=== PATIENT | female | born 1945 | race Caucasian/White ===

== ENCOUNTER 2018-12-24 20:45 | Inpatient (IN) ==
[2018-12-24] MEDS ORDERED: ATIVAN PO ONE (21:20)
[2018-12-24] MEDS ORDERED: ASPIRIN PO ONE (21:21)
[2018-12-24] MEDS ORDERED: NITROGLYCERIN SL PRN (21:21)
--- NOTE | 2018-12-24 21:47 | Diag Imaging Result Doc PS360 ---
EXAM: CHEST-2 VIEWS HISTORY: sob, cp TECHNIQUE: Chest two views COMPARISON: 05/10/2015 FINDINGS: Apical lordotic projection. The lungs are well expanded. The heart is mildly enlarged. The vessels are not distended. There are no infiltrates. No pleural effusions. IMPRESSION: Mild cardiomegaly. Electronically signed by Herminio Fairbanks 12/24/2018 9:45 PM
[2018-12-24 22:08] LABS: BASO# 0.03 X1000 (0.0-0.2); BASO% 0.3 % (0.0-0.8); EOS# 0.14 X1000 (0.0-0.7); EOS% 1.4 % (0.0-10.0); HEMATOCRIT 40.6 % (37.0-47.0); HEMOGLOBIN 14.2 g/dL (12.0-16.0); IMM GRAN# 0.03 X1000 (0.0-0.04); IMM GRAN% 0.3 % (0.0-0.5); LYMPH# 3.45 X1000 (1.2-3.4); LYMPH% 33.7 % (20.5-51.1); MCH 32.3 PG (27-31); MCV 92.5 FL (81-99); MONO# 0.57 X1000 (0.11-0.59); MONO% 5.6 % (1.7-9.3); MPV 10.3 FL (7.4-10.4); NEUT# 6.03 X1000 (1.4-6.5); NEUT% 58.7 % (42.2-75.2); PLT 204 X1000 (130-400); RBC 4.39 XMIL (4.2-5.4); WBC 10.25 X1000 (4.8-10.8)
[2018-12-24 22:13] LABS: INR 0.83; PROTIME 12.1 Seconds (11.0-16.0)
[2018-12-24 22:27] LABS: AGAP 17; ALB/GLOB RATIO 1.8; ALBUMIN 4.5 g/dL (3.5-5.0); ALKALINE PHOSPHATASE 48 U/L (32-104); BUN 15 mg/dL (8-22); CALCIUM 9.4 mg/dL (8.8-10.2); CHLORIDE 94 mmol/L (98-107); CK PROFILE 142 U/L (24-173); COSMO 277; CREATININE 0.7 mg/dL (0.5-0.9); ESTIMATED GFR > 60; GLUCOSE 138 mg/dL (70-104); GOT 19 U/L (10-30); GPT 19 U/L (10-36); POTASSIUM 3.8 mmol/L (3.5-5.1); SODIUM 137 mmol/L (136-145); TCO2 26 mmol/L (25-35); TOTAL BILIRUBIN 0.24 mg/dL (0.20-1.00)
[2018-12-24] MEDS ORDERED: ANTIVERT PO ONE (23:28)
[2018-12-24] MEDS ORDERED: ATROPINE IV ONE (23:31)
[2018-12-25] MEDS ORDERED: LOPRESSOR IV ONE (00:59)
--- NOTE | 2018-12-25 01:19 | PROVIDER DOCUMENTATION ---
This chart was entered by Harmony Abel Scribe, acting as scribe for Deirdre Pierre MD. HPI-General Adult - General Stated Complaint: dizzy , sob Time Seen by Provider: 12/24/18 21:21 Source: patient, family, EMS Allergies/Adverse Reactions: Patient Allergies Allergy/AdvReac Type Severity Reaction Status Date / Time Penicillins Allergy Unknown Verified 12/25/18 00:19 - History of Present Illness -Gen Adult Nature of Presenting Problems: 73 yof presents w/family at bedside and ems w/cc ems sts pt was walking on treadmill, felt dizzy all of a sudden and had ear pain mostly on lt side. pt blood pressure enroute was 191/125 at 1957 but when arriving at er went down to 156/94. pt sts ears and head are pounding and throbbing. pt dizzy lying down in room. pt sts this has never happened before. pt has hx of htn, dm and high cholesterol. took bp rx scow captain. family at bedside sts pt took 1/2 of a garcinia cambogia dietary supplement today. pt lives alone. walks on treadmill daily. denies nvd, fever, cp and sob. Review of Systems - Adult - REVIEW OF SYSTEMS - ADULT Constitutional: reports: no symptoms reported. denies: chills, fever Eyes: reports: no symptoms reported Ears, Nose, Mouth & Throat: reports: see HPI, ear pain (bilat, mostly left). denies: sinus problem, throat pain, throat swelling Cardiovascular: reports: no symptoms reported. denies: chest pain Respiratory: reports: no symptoms reported. denies: shortness of breath Gastrointestinal: reports: no symptoms reported. denies: abdominal pain, diarrhea, nausea, vomiting Genitourinary: reports: no symptoms reported Musculoskeletal: reports: no symptoms reported Integumentary: reports: no symptoms reported Neurological: reports: see HPI, dizziness/vertigo, other (head pounding). denies: loss of balance, slurred speech, syncope Psychiatric: reports: no symptoms reported Endocrine: reports: no symptoms reported Hematologic/Lymphatic: reports: no symptoms reported Allergic/Immunologic: reports: no symptoms reported All Other Systems: Reviewed and Negative Past History - Adult - PAST MEDICAL HISTORY-ADULT Review of Records: reports: Old Records Reviewed, Nursing Assessment Review, Medications Reviewed, Social history reviewed & non-contributory. Major Childhood Illnesses: reports: denies history Cardiovascular: reports: HTN, hyperlipidemia Respiratory: reports: denies history Gastrointestinal: reports: denies history Obstetrical/Gynecological: reports: denies history Genitourinary: reports: denies history Musculoskeletal: reports: denies history Neurological: reports: denies history Endocrine/Immune: reports: Diabetes Other Conditions: reports: denies history - IMMUNIZATION STATUS Childhood Immunizations: See Nurse Assessment Flu Vaccine: See Nurse Assessment - FAMILY HISTORY Family History: reviewed, not pertinent Physical Exam-General - PHYSICAL EXAM-ADULT Initial Vital Signs Reviewed: Yes - CONSTITUTIONAL General Appearance: alert, mild distress, anxious. negative: slow to respond, obtunded, combative - EYES Eyes: PERRL/EOMI, pink conjunctivae - HEAD, EARS, NOSE, MOUTH & THROAT HENMT: normocephalic/atraumatic, moist mucous membranes, normal ENT inspection, TMs normal, pharynx normal, frontal tenderness. negative: TM abnormal, TM obscurred by cerumen, maxillary tenderness - NECK Neck: non-tender, full range of motion, supple, normal inspection - RESPIRATORY Respiratory: chest non-tender, lungs clear, normal breath sounds - CARDIOVASCULAR Cardiovascular: normal peripheral pulses, regular rate, rhythm, no edema, no gallop, no JVD, no murmur. negative: bradycardia, gallop/S3, gallop/S4, extra beats - GASTROINTESTINAL (ABDOMEN) Abdominal Exam: normal bowel sounds, non tender, soft - LYMPHATIC Lymphatic: no adenopathy - MUSCULOSKELETAL Back Exam: normal inspection, no CVA tenderness, no vertebral tenderness Extremity: normal range of motion, non-tender, other (pt "wobbled" when walking w/assistance w/daughters to bathroom). negative: normal inspection, calf tenderness, deformity, erythema Peripheral Pulses: radial (R): 2+, radial (L): 2+ - SKIN Integumentary: normal color, normal turgor, warm/dry - NEUROLOGIC Neurologic: grossly normal, no motor/sensory deficits - PSYCHIATRIC Psych/Mental Status: normal thought content, normal thought process, oriented x 3, anxious. negative: depressed affect, paranoid, tearful Progress - PLAN OF CARE/RESULTS Progress/Plan/Lab Results: Vital Signs - 8 hr 12/24/18 21:00 Temperature 99.2 F Pulse Rate 94 H Respiratory Rate 20 Blood Pressure 159/88 O2 Sat by Pulse Oximetry 99 Orders Category Date Time Status Lorazepam [Ativan] Med 12/24/18 21:20 Once 0.5 mg PO NOW ONE EKG [EKG] Stat Ther 12/24/18 20:38 Ordered Result Diagrams: 12/24/18 21:47 12/24/18 21:47 - REASSESSMENT Reassessment #1 Time Reassessed: 01:05 (s/p atropine for vertigo, pt HR and bp elevated, and symptoms still persists. HR 120s, BP 180/100, will give lopressor 5mg) Reassessment #2 Time Reassessed: 02:17 (not improving, still severe vertigo while trying to get up. pt lives alone, will admit for observation. discussed with family. ) - EKG 1 Time of EKG reading by physician:: 21:03 EKG Read and Signed by:: Deirdre Pierre EKG Interpretation (*Must complete 3 of following elements*): Abnormal Rate: 95 Rhythm: NSR [place]: normal QRS: normal ST Wave: non-specific ST changes (nonspecific st abnormality.) - XRAY 1 XRAY: Bilateral XRAY Study: Chest (EXAM: CHEST-2 VIEWS HISTORY: sob, cp TECHNIQUE: Chest two views COMPARISON: 05/10/2015 FINDINGS: Apical lordotic projection. The lungs are well expanded. The heart is mildly enlarged. The vessels are not distended. There are no infiltrates. No pleural effusions. IMPRESSION: Mild cardiomegaly. Electronically signed by Herminio Fairbanks 12/24/2018 9:45 PM) Impression: Abnormal - CT/MRI 1 CT Study: Head (negative for acute abnormalities) - CONSULTS/PCP/HOSPITALIST Notification #1 *Consult/PCP/Hospitalist*: Dr. Rubin Time Discussed: 02:30 (observation, severe vertigo not resolving.) Consult Disposition: Admit Departure - Departure Date of Disposition Decision: 12/25/18 Time of Disposition Decision: 02:31 DIAGNOSIS: Vertigo Disposition: ADMITTED INPATIENT 09 Certified Medical Emergency: Emergent Condition: Stable Referrals and Follow-Ups: Damon Duque MD [Primary Care Provider] - - Critical Care Note This patient required my direct & personal management of CC.: No Attestation - Physician/ YANIRA Attestation Patient care was provided by Advanced Practice Provider:: No The physician spent face to face time with patient:: Yes Advanced Practice Provider documentation review:: Supervising physician onsite and consulted in the evaluation and care of this patient. The physician did have a face to face encounter with the patient. This chart was documented by the indicated scribe, (Harmony Abel Scribe) and accurately reflects the services I performed and decisions made by me, Deirdre Pierre MD, as attested by the provider's signature.
[2018-12-25] MEDS ORDERED: ZOFRAN IV ONE (02:29)
--- NOTE | 2018-12-25 06:23 | Diag Imaging Result Doc PS360 ---
CT HEAD W/O CONTRAST - 12/24/2018 INDICATION: cva COMPARISON: None FINDINGS: The ventricles and sulci are normal in size and contour. No intracranial mass or hemorrhage. The skull is intact. The sinuses mastoids and middle ears are clear. The globes are very small in size. IMPRESSION: No acute disease. This exam was performed using automated exposure control, adjustment of mA or kV according to patient size, and/or use of iterative reconstruction technique Electronically signed by Jose Daniel Davis 12/25/2018 6:20 AM
[2018-12-25] MEDS ORDERED: ZOFRAN IV PRN (07:42)
[2018-12-25] MEDS ORDERED: VALIUM PO ONE (07:42)
[2018-12-25] MEDS ORDERED: DUONEB (A & A) INH PRN (07:50)
[2018-12-25] MEDS: ANTIVERT PO SCH ×3 (08:50→22:38)
--- NOTE | 2018-12-25 09:57 | Diag Imaging Result Doc PS360 ---
MRA NECK W/O CONT - 12/25/2018 INDICATION: Veritigo,Poss. CVA TECHNIQUE: Noncontrast [id number] technique was used COMPARISON: None FINDINGS: The great vessel origins are grossly normal. The common carotid arteries are normal. On the right side, there is severe stenosis of the origin of the internal carotid artery. This is narrowed by about 75%. On the left side, there is mild stenosis of the mid-distal internal carotid artery which is narrowed by about 50%. The vertebral and basilar arteries are all patent. IMPRESSION: Bilateral internal carotid artery stenosis, severe on the right and moderate on the left. Electronically signed by Jose Daniel Davis 12/25/2018 9:55 AM
--- NOTE | 2018-12-25 10:00 | Diag Imaging Result Doc PS360 ---
MRI BRAIN W/WO CONTRAST - 12/25/2018 INDICATION: Veritigo,Poss. CVA COMPARISON: Head CT 12/24/2018 FINDINGS: There is moderate patient motion artifact diffusely. There is no area of restricted diffusion. No intracranial mass or hemorrhage. The ventricles and sulci are normal in size and contour. There are couple of tiny nonspecific white matter hyperintensities in the subcortical white matter of the superior right frontal lobe. Midline structures are unremarkable. IMPRESSION: No acute disease. Tiny nonspecific white matter hyperintensity in the right frontal lobe. Electronically signed by Jose Daniel Davis 12/25/2018 9:58 AM
--- NOTE | 2018-12-25 10:02 | Diag Imaging Result Doc PS360 ---
MRA BRAIN W/O CONTRAST - 12/25/2018 INDICATION: Veritigo,Poss. CVA TECHNIQUE: Noncontrast [id number] technique was used COMPARISON: None FINDINGS: The internal carotid arteries and vertebral and basilar arteries are all normal. The major cerebral arteries are all normal. There is no aneurysm or stenosis. IMPRESSION: Negative exam. Electronically signed by Jose Daniel Davis 12/25/2018 10:00 AM
[2018-12-25] MEDS: HUMULIN R SUBQ SCH ×2 (10:53→22:37)
--- NOTE | 2018-12-25 10:53 | EKG Report ---
Test Performed on : 12/24/2018 9:03:53 PM Test Reason : SOB, DIZZY Blood Pressure : / mmHG Vent. Rate : 095 BPM Atrial Rate : 095 BPM P-R Int : 132 ms QRS Dur : 080 ms QT Int : 356 ms P-R-T Axes : 062 021 017 degrees QTc Int : 447 ms Normal sinus rhythm. Nonspecific ST abnormality Abnormal ECG No previous ECGs available Unconfirmed Result
[2018-12-25 11:06] LABS: BASO# 0.05 X1000 (0.0-0.2); BASO% 0.7 % (0.0-0.8); EOS# 0.18 X1000 (0.0-0.7); EOS% 2.4 % (0.0-10.0); HEMATOCRIT 39.7 % (37.0-47.0); HEMOGLOBIN 13.9 g/dL (12.0-16.0); LYMPH# 3.64 X1000 (1.2-3.4); LYMPH% 48.1 % (20.5-51.1); MCH 32.6 PG (27-31); MONO# 0.54 X1000 (0.11-0.59); MONO% 7.1 % (1.7-9.3); MPV 10.5 FL (7.4-10.4); NEUT# 3.16 X1000 (1.4-6.5); NEUT% 41.7 % (42.2-75.2); PLT 200 X1000 (130-400); RBC 4.27 XMIL (4.2-5.4); RDW 14.3 % (11.5-14.5); WBC 7.57 X1000 (4.8-10.8)
[2018-12-25 11:13] LABS: HEMOGLOBIN A1C 5.7 % (4.8-6.0)
[2018-12-25 11:29] LABS: AGAP 13; BUN 12 mg/dL (8-22); CHLORIDE 97 mmol/L (98-107); COSMO 275; CREATININE 0.7 mg/dL (0.5-0.9); ESTIMATED GFR > 60; GLUCOSE 97 mg/dL (70-104); MAGNESIUM 1.3 mg/dL (1.5-2.7); POTASSIUM 3.8 mmol/L (3.5-5.1); SODIUM 138 mmol/L (136-145); TCO2 28 mmol/L (25-35)
--- NOTE | 2018-12-25 14:07 | HISTORY AND PHYSICAL ---
PRIMARY CARE PROVIDER: Damon Duque MD. CHIEF COMPLAINT: Dizziness and shortness of breath. HISTORY OF PRESENT ILLNESS: Ms. Hayden is a 73-year-old, female with a past medical history most notable for diabetes mellitus, asthma and hypertension. The patient states that yesterday afternoon on 12/24/2018 around 1 to 2 p.m. that she did have a sudden onset of being off balance and was not able to walk. She reported dizziness with a feeling as though the room was spinning. Due to this, the patient states she did become panic, that she was unable to walk. She states that she could not get a hold of her family as well and did end up having to call an ambulance. The patient states due to being panicked and having a little anxiety about what was going on, she did become short of breath. She does have a history of asthma, though her shortness of breath has since subsided. The patient did present to the ER. In the ER, they did give medicines of Lorazepam 0.5 mg p.o., as well as meclizine. Though she is still reporting that the room is spinning, when she gets up to walk if she does not have 1 standing with her, the patient states she feels like she is going to fall over. We did some orthostatic blood pressures. Patient did not tilt. Blood pressure actually went up with sitting and standing positions. Her blood pressure on arrival to the ER was elevated in the 170s systolically and the 100s diastolically. The patient is reporting a headache, as well as her dizziness and feeling off balance, though she is not reporting any other acute neurological changes. She denies any fever, body aches, or chills. She denies any chest pain. She did have some shortness of breath; as previously mentioned, this has subsided. She denies any cough at present. She denies any abdominal pain, nausea, vomiting or diarrhea. She denies any dysuria. She denies any pain, numbness, tingling or swelling in extremities. The patient did state that a couple weeks ago she was diagnosed with what sounds like an upper respiratory infection. She was given a steroid and antibiotic pack. The patient states also with this that she did have some swelling to her left cheek and left forehead area. It still is slightly puffy, though the patient states it was much worse and has improved. She is reporting unusual feeling in her left ear as well. Upon evaluation in the ER initially, her CT of the head was negative for any acute intracranial abnormality. Her chest x-ray was negative, except for some mild cardiomegaly. EKG showed normal sinus rhythm at a rate of 95. CBC was pretty unremarkable as well as her chemistry. CK and troponin were negative. Though even after treatment with medications, her symptoms have not improved much. She will be admitted for further treatment and evaluation. REVIEW OF SYSTEMS: A 14 point review of systems was conducted with the patient. All were negative, except for pertinent positives mentioned above in the HPI. PAST MEDICAL HISTORY: 1. Diabetes mellitus type 2. 2. Asthma. 3. Hypertension. 4. 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 5. Reports of loss of hearing in her left ear. PAST SURGICAL HISTORY: 1. Cholecystectomy. 2. Hysterectomy. 3. Renal lithiasis. 4. Bilateral cataract surgery. SOCIAL HISTORY: The patient has no known history of tobacco, alcohol or illicit drug use. She does live by herself, although does have 2 daughters and a son that live close by that check on her frequently. She does use the ambulatory assistance of a walker at times, though the patient states that she gets up daily and does walk on a treadmill and rides a stationary bike. FAMILY HISTORY: Positive for her mother and father both having a history of diabetes mellitus, though she states other than this, she is not sure of any other medical history they had. [place], and she did not get to see them much from what I understand. ALLERGIES: Patient had reported allergy to penicillin. HOME MEDICATIONS: 1. Vitamin B 12 1000 mcg IM as directed. 2. Hydrochlorothiazide 25 mg p.o. daily. 3. Lisinopril 10 mg p.o. b.i.d. 4. Metformin 500 mg 1 tablet p.o. t.i.d. 5. Omeprazole 20 mg p.o. daily. 6. The patient does have Advair reconciled on her home medication list, though she did tell me when I was at bedside that this had been changed to a different medicine; this may need reconfirmation before continuing. DIAGNOSTIC DATA: White blood cell count 10,250, hemoglobin. 14.2, hematocrit 40.6, platelet count is 204. PT 12.1, INR 0.83, PTT is 26. Sodium 137, potassium 3.8, chloride 94. Serum bicarbonate is 26, BUN 15, creatinine 0.7 with GFR greater than 60, glucose 138., Calcium 9.4. Liver function tests are within normal limits. CK 142, troponin less than 0.01. ProBNP is 140. Chest x-ray showed no acute abnormality, other than some mild cardiomegaly. CT of the head noncontrast showed no acute intracranial abnormalities. EKG showed normal sinus rhythm at a rate of 95 with a QTc of 447. PHYSICAL EXAMINATION: VITAL SIGNS: Temperature 99.2, heart rate 78, respirations 17, blood pressure 135/94, oxygen saturation is 97% on room air. GENERAL: Ms. Hayden is a very pleasant, 73-year-old female. She was resting in the ER stretcher. She was in no acute distress. She was awake, alert, and able to answer questions appropriately. HEENT: Head is atraumatic. The patient does have a scar noted to the top of her head, for which she states she did have a skin cancer removed a few months ago, but this does appear to be healing well. There are no signs of infection. Left pupil was difficult to assess. The patient has had bilateral cataract surgery. The right pupil was viewable, although was misshapen. Conjunctivae were pink. Oral mucosa is moist. Oropharynx was clear. NECK: Supple. Trachea midline. CARDIOVASCULAR: The patient has S1, S2 present. No murmurs, gallops, rubs appreciated with a regular rate and rhythm. PULMONARY: The patient has symmetrical chest expansion bilaterally. Lung sounds are clear to auscultation in bilateral full alston. ABDOMEN: Soft, nontender, nondistended. Bowel sounds are present in all 4 quadrants, were normoactive. EXTREMITIES: No cyanosis or edema noted. Pulse, motor, and sensory intact in all extremities. Radial pulses and pedal pulses are 2+ bilaterally. INTEGUMENTARY: The patient's skin is pink, warm and dry. NEUROLOGICAL: Patient is alert, oriented x4. She still was reporting dizziness and the room spinning upon sitting up and standing up and ambulation. Though, when lying at rest and she is laid back, she states that she is asymptomatic. She still is reporting an occasional headache. Please see above exam for assessment of pupil documentation. The patient does not have a facial droop noted. There is no arm drift noted either. She does have equal hand grasps and muscle strength bilaterally. Her speech is clear and understandable. There does not appear to be any focal neurological deficits noted, other than her reports of dizziness, the room spinning and balance. ASSESSMENT AND PLAN: 1. Positional vertigo. This is of uncertain etiology at this time, though considerations include possible cerebellar infarct, as well as this tubular neuritis, given that she reports she recently had likely upper respiratory infection. We will go ahead and check a magnesium level as well. This could be contributing to her symptoms also. All other electrolytes were within normal limits. Her CT of the head was negative, though we will go ahead and obtain MRI of the brain with and without contrast, and an MRA of brain and neck without contrast. We will also perform an echocardiogram. The patient's blood pressure was elevated upon arrival in the 170s systolically, but this has improved at this time. It is maintaining in the 130s to low 140s. At this time given that we are ruling out possible cerebrovascular accident, we will hold her antihypertensive medications and will allow for some mild permissive hypertension, though we will continue to monitor this closely and, if her blood pressure does increase again, we will treat with as-needed medicines. She was given aspirin in the emergency room upon arrival. We will go ahead and implement meclizine 25 mg oral 3 times a day, as well as give her a dose of Valium 10 mg oral. We will provide some Tylenol for her headaches and Zofran for nausea if needed. She will remain on nothing by mouth for a lipid profile this morning. After this, she can continue with a diabetic diet. We will do neuro checks. Repeat vital signs. She will be on continuous cardiac telemetry, and we will await diagnostic studies and continue to follow. 2. Diabetes mellitus. We have placed the patient on a sliding scale regular insulin per low-dose protocol with pattern fingerstick blood sugars. 3. Asthma. We have ordered for DuoNeb treatments as needed. 4. Hypertension. We will continue with treatment as mentioned above in #1. 5. Deep vein thrombosis prophylaxis. Provided with sequential compression devices. The patient has been placed on the medical floor telemetry. We are awaiting pertinent tests really at this time of a magnesium level and MRI and MRA studies and an echocardiogram. We have ordered for some repeat labs in the morning. Further orders and recommendations pending hospital course, diagnostic studies and physician evaluation. Dictated by MARTA Acosta for Pritesh Rubin MD cc: MD Damon Peña MD
--- NOTE | 2018-12-25 15:36 | ECHO REPORT ---
ORDER DATE: 12/25/2018 INTERPRETING PHYSICIAN: Dr. Fuentes INDICATIONS: Possible stroke. Vertigo. Hypertension. M-MODE MEASUREMENTS: Left ventricle end diastole: 4.5 cm. Left ventricle end systole: 2.7 cm. Posterior wall: 0.9 cm. Interventricular septum: 0.9 cm. Left atrium: 3.5 cm. Aortic diameter: 2.5 cm. SUMMARY OF 2-DIMENSIONAL IMAGING: The study was difficult. Optison was added to optimize visualization of the endocardium. 1. Left ventricular function is excellent, ejection fraction is estimated at 70% or so. 2. The left atrium appears to be mild to moderately enlarged. 3. The aortic valve opens normally. Color flow mapping unremarkable. 4. The mitral valve opens normally. Color flow mapping indicates a moderate degree of mitral regurgitation. 5. The pulsed wave Doppler of mitral inflow shows very mild reversal of the E and the A ratio. Ratio is 0.8. 6. Tissue Doppler of septal and lateral mitral annulus averages 7 cm. 7. There is no diastolic dysfunction. 8. The pulmonic valve looks grossly normal. Color flow mapping unremarkable. 9. The tricuspid valve shows mild degree of regurgitation. 10.Pulmonary pressure is estimated at 30 to 35 mmHg. 11.There is no pericardial effusion, no mass, and no thrombus. SUMMARY: This study shows: 1. Normal left ventricular systolic function. The study was difficult. Optison was added. Ejection fraction of 70% or better. 2. Moderate degree of mitral regurgitation. 3. No diastolic dysfunction. 4. Pulmonary pressure at 30 to 35 mmHg. 5. Unremarkable aortic valve. Clinical correlation is recommended. cc: MD Damon Ontiveros MD
[2018-12-25] MEDS ORDERED: MAGNESIUM SULFATE 2 GM/S.W.I. 2 GM/50 ML IVPB IV ONE (18:11)
[2018-12-25 19:15] LABS: URINE SOURCE CLEAN CATCH
[2018-12-25 19:26] LABS: BILIRUBIN URINE NEGATIVE (NEGATIVE); BLOOD URINE NEGATIVE (NEGATIVE); COLOR STRAW; GLUCOSE URINE NEGATIVE (NEGATIVE); KETONE URINE NEGATIVE (NEGATIVE); LEUKOCYTES URINE NEGATIVE (NEGATIVE); NITRITE URINE NEGATIVE (NEGATIVE); PH URINE 7.5; PROTEIN URINE NEGATIVE (NEGATIVE); TURBIDITY URINE CLEAR (CLEAR); UROBILINOGEN URINE NORMAL (NORMAL)
[2018-12-25 19:28] LABS: UR EPITHELIAL CELLS <10 /HPF (<10); URINE BACTERIA 1+ /HPF; URINE RBC <10 /HPF (<10); URINE WBC <10 /HPF (<10)
--- NOTE | 2018-12-25 19:39 | PROGRESS NOTE ---
DATE: 12/25/2018 SUBJECTIVE: Ms. Deirdre Hayden was admitted with significant vertigo, mostly positional with some nausea, elevated blood pressure. The patient was evaluated in the ER, admitted for further care. Admission history and physical noted. The patient still has positional vertigo. No major headache or chest pain. OBJECTIVE: Vital signs noted. Blood pressure improved. Neck supple. No JVD. Lungs: Bilateral air entry present. Occasional wheezing. CVS: S1 and S2 heard. Abdomen soft, globular. Bowel sounds present.S[employer] POL[employer]ER: Alert, awake, able to move all 4 limbs. DIAGNOSTIC DATA: Workup so far: MRA of the neck revealed bilateral internal carotid artery stenosis. On the right side it is 75% and about 50% on the left side. Brain MRA was negative. MRI of the brain: No acute disease. Echocardiogram result noted, which revealed moderate degree of mitral regurgitation. Ejection fraction was 70. Pulmonary pressure 30% to 35%. ASSESSMENT: 1. Positional vertigo, most likely due to labyrinthitis or inner ear problem. 2. Chronic obstructive pulmonary disease. 3. Hypertension. PLAN: Treat the patient conservatively. I did neurology consult. Hopefully the patient should be ready to go home soon. Discussed fall precaution. Dr. Cat will see the patient in my absence from tomorrow. cc: Damon Duque MD
--- NOTE | 2018-12-25 20:14 | Carotid Study ---
DATE: 12/25/2018 PROCEDURE: Carotid duplex imaging. REFERRING PHYSICIAN: Dr. Murry. INTERPRETING PHYSICIAN: Dr. Voss. TECH: [place]. INDICATIONS: Vertigo. OBSERVED DATA RIGHT LEFT Brachial Blood Pressure Carotid Pulse Bruits: Carotid/Sub DIAGRAM OF ULTRASOUND IMAGING R L RIGHT INT EXT INT EXT LEFT Daniel (cm/s) Daniel (cm/s) Subclavian 98/0 Subclavian 127/0 CCA Proximal 103/16 CCA Proximal 111/15 CCA Distal 61/17 CCA Distal 82/17 Bulb 70/11 Bulb 78/15 ICA Proximal 70/18 ICA Proximal 61/16 ICA Mid 66/15 ICA Mid 54/15 ICA Distal 62/19 ICA Distal 81/24 ECA 99/7 ECA 94/11 Vertebral 44/9 A Vertebral 40/10 A ICA/CCA Ratio 0.7 ICA/CCA Ratio 0.7 % Stenosis 0-39% % Stenosis 0-39% PHYSICIAN INTERPRETATION: No significant plaque is identified. There is antegrade vertebral flow bilaterally. There is no significant stenoses present on either internal carotid. cc: MD Osamr Watson III, MD Bharat K. Vakharia, MD
--- NOTE | 2018-12-25 20:17 | CONSULTATION ---
DATE OF CONSULTATION: 12/25/2018 HISTORY OF PRESENT ILLNESS: Ms. Hayden reports recent sudden onset of dizziness and unsteady gait. Her report is that she was walking on a treadmill, as is her usual habit, and feeling well. She began to feel a little bit lightheaded and possibly an odd feeling mostly over the left side of her head. She felt dizzy. She got herself off the treadmill. She checked her blood pressure and reports it was very high, possibly systolics over 200. Ambulance was summoned. 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 She needed help getting up. She reports she has not been able to stand and walk unassisted since then. She did not notice weakness or clumsiness in one limb more than another. She did not notice any new vision disturbance, but she has chronic very poor vision. She did not notice loss of hearing, but has baseline very poor hearing. She reports no prior similar episode. She has had elevated blood pressures in the past, but believes possibly not as high as this. There is no history of diagnosed stroke. She has not had recent head injury. Past history is remarkable for diabetes mellitus, hypertension, possibly dyslipidemia. Workup includes initial noncontrast CT reported unremarkable. Brain MRI done today with and without contrast shows some small areas of abnormal signal in the subcortical right frontal lobe without restricted diffusion. Cerebellum and brain stem look good. Brain MRA is unremarkable. Cervical MRA raises question of right more than left internal carotid stenosis in the neck. Lab work showed blood sugars 130s, triglycerides 215, nothing else remarkable on the chemistry profile. She has been afebrile. Systolic blood pressures have ranged 130s to 170s since admission. HOME MEDICINES: Reported to be: 1. Cyanocobalamin. 2. Fluticasone/salmeterol. 3. Hydrochlorothiazide. 4. Lisinopril. 5. Metformin. 6. Omeprazole. Here, Meclizine scheduled 25 mg t.i.d. has been added. PHYSICAL EXAMINATION: Ms. Hayden is awake, alert, attentive. She seems appropriate. She is quite hard of hearing. When she could hear and understand me, communication was normal. Speech is not dysarthric. Language function is intact. Memory seems good. Head and neck are unremarkable. She has no light perception in the left eye. On the right, visual acuity is very poor, hard for her to perform visual field testing on confrontational finger counting, but she was able to count fingers, nasal and temporal alston, with the right eye. Facial motility is symmetric. Tongue is midline. Shoulder shrug is equal. Strength is normal in the arms and legs. She had slight difficulty with [id number] and [id number]-[id number] testing bilaterally, but probably not remarkable. She reports diminished pinprick appreciation over the left hand compared to the right and over the right foot compared to the left. Proprioception is good at the great toe MTP joint on the right and inconsistent on the left. I did not test her gait. Plantar response is silent bilaterally. Reflexes are absent at the ankles and 1+ symmetrically at the wrists. IMPRESSION: 1. Reported sudden onset of gait difficulty associated with elevated blood pressure and stable course since onset. This might be hypertensive urgency. I do not see clinical or imaging evidence of intracranial bleeding, edema, posterior reversible encephalopathy, or definite hypertensive encephalopathy. There was never a seizure or altered awareness. Some features are consistent with vertigo, but I am not sure that accounts for all of her difficulty. 2. MRI finding of small subcortical right frontal signal with question of clinical significance. 3. Chronic poor hearing. She seems to be stabilized with meclizine right now. 4. Chronic poor vision, with no evidence of acute change. 5. Risk factors for cerebrovascular ischemic problems, including age, hypertension, possibly dyslipidemia, hypertriglyceridemia, diabetes mellitus. 6. Imaging evidence of internal carotid stenosis. I think ultrasound might give a more definite view. I think we should maintain adequate blood pressure until we see results of vascular imaging. Thanks for asking Neurology to see Ms. Hayden. cc: MD Damon Means III, MD MTDD
[2018-12-25] MEDS: PRINIVIL PO SCH (22:38)
[2018-12-25] MEDS: ADVAIR 250/50 DISKUS INH SCH (23:14)
[2018-12-26] MEDS: TYLENOL PO PRN ×2 (06:28→16:36)
[2018-12-26] MEDS: HUMULIN R SUBQ SCH ×5 (06:28→20:53)
[2018-12-26] MEDS: PRILOSEC PO SCH (06:28)
--- NOTE | 2018-12-26 09:21 | PROGRESS NOTE ---
DATE: 12/26/2018 SUBJECTIVE: Ms Hayden is a 73-year-old white female, complains now about headache in the left temporal area. 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 She is still having problems with getting up. OBJECTIVE: Her MRI showed subcortical right frontal signal, question of clinical significance, chronic mild ischemia. Imaging, there is evidence of internal carotid stenosis. She was seen by Dr. Murry yesterday. Her vital signs are stable today. Blood pressure is 136/56. The patient is afebrile. ASSESSMENT AND PLAN: She has insulin-dependent diabetes and is on meclizine. IV magnesium has been given. We will repeat her magnesium in the morning. -7 cc: MD Damon Montana MD
[2018-12-26] MEDS: ANTIVERT PO SCH ×3 (10:47→20:53)
[2018-12-26] MEDS: PRINIVIL PO SCH ×2 (10:47→20:53)
[2018-12-26] MEDS: HYDROCHLOROTHIAZIDE PO SCH (10:47)
[2018-12-26] MEDS: ADVAIR 250/50 DISKUS INH SCH ×2 (10:54→20:05)
--- NOTE | 2018-12-26 13:54 | PROGRESS NOTE ---
DATE: 12/26/2018 [facility] SUBJECTIVE: Ms. Hayden reports less dizziness today. She has been able to stand and help get herself to the bedside commode with less difficulty than yesterday. She believes her hearing problems are chronic with nothing definitely new, but hard for her to eviction specialist without her hearing aids. She has had some elevated blood pressures. She reports blood sugars have been well controlled at home with metformin. Her carotid ultrasound showed hemodynamically insignificant stenosis bilaterally and did not confirm the more prominent stenosis reported on MRA. I believe the ultrasound is likely more accurate. Therefore, I think we can treat her blood pressure aggressively, if needed. There is no evidence of acute ischemic stroke. Her description to me today is more consistent with positional vertigo, as Dr. Duque had initially reported. I believe meclizine is providing some benefit. I do not have any urgent suggestion from neurologic standpoint. Thanks for asking me to see Ms. Hayden. cc: MD Damon Means III, MD MTDD
[2018-12-27] MEDS: HUMULIN R SUBQ SCH ×4 (06:06→20:33)
[2018-12-27] MEDS: PRILOSEC PO SCH (06:10)
[2018-12-27] MEDS: ADVAIR 250/50 DISKUS INH SCH ×2 (07:27→22:07)
[2018-12-27 08:23] LABS: AGAP 14; BUN 12 mg/dL (8-22); CALCIUM 9.2 mg/dL (8.8-10.2); CHLORIDE 98 mmol/L (98-107); COSMO 274; CREATININE 0.7 mg/dL (0.5-0.9); ESTIMATED GFR > 60; GLUCOSE 113 mg/dL (70-104); MAGNESIUM 1.8 mg/dL (1.5-2.7); POTASSIUM 3.8 mmol/L (3.5-5.1); SODIUM 137 mmol/L (136-145); TCO2 25 mmol/L (25-35)
[2018-12-27] MEDS: HYDROCHLOROTHIAZIDE PO SCH (08:52)
[2018-12-27] MEDS: PRINIVIL PO SCH ×2 (08:52→20:33)
[2018-12-27] MEDS: ANTIVERT PO SCH ×3 (08:52→20:33)
--- NOTE | 2018-12-27 09:05 | PROGRESS NOTE ---
DATE: 12/27/2018 Ms. Hayden seems much brighter this morning. She had appropriate conversation with me. She can hear better with hearing aid in the right ear. She reports still not able to hear well with the left ear. She seems improved with gait, but believes she is not back to baseline. She has had some headache. She reports headaches in the past, generally attributed to blood pressure elevation. Vital sign record here shows some moderate systolic blood pressure elevations, which may correlate with her headache. I reviewed the workup reports this admission including brain imaging. There is nothing to suggest acute stroke, brainstem or cerebellar lesion, or other MARKETING WRITER problem. She gives clear description of vertigo with positional features. She has meclizine on board. I encouraged her to be careful with activities, to take her medicines as directed, to work hard on blood pressure control. If she has persistent headache with blood pressure controlled, we might consider other headache management. If her dizziness persists, ENT evaluation might be considered. Son was present at the bedside. I will be glad to see Ms. Hayden again if needed. Thanks for asking Neurology to see her here. cc: MD Damon Means III, MD MTDD
--- NOTE | 2018-12-27 13:37 | PROGRESS NOTE ---
DATE: 12/27/2018 The patient is a patient of DR. Duque. She still has mild headache. She has deafness in the left ear for which she may have to get an ENT opinion as an outpatient. Her vertigo is still there, and she had a thorough neurological evaluation. She cannot walk steady. She has had a danger of falling. There is no help at home. Family is working and cannot be with her most of the times. Family has indicated that she needs to be transferred to rehab. I am going to put a consult for rehab. -5 cc: MD Damon Montana MD
[2018-12-27] MEDS: TYLENOL PO PRN (14:01)
[2018-12-28] MEDS: PRILOSEC PO SCH (06:10)
[2018-12-28] MEDS: ADVAIR 250/50 DISKUS INH SCH ×2 (07:47→20:25)
[2018-12-28] MEDS: HUMULIN R SUBQ SCH ×5 (09:13→22:49)
[2018-12-28] MEDS: PRINIVIL PO SCH ×2 (09:14→22:44)
[2018-12-28] MEDS: ANTIVERT PO SCH ×3 (09:14→22:44)
[2018-12-28] MEDS: HYDROCHLOROTHIAZIDE PO SCH (09:14)
[2018-12-28] MEDS: GLUCOPHAGE PO SCH (17:10)
--- NOTE | 2018-12-28 23:05 | PROGRESS NOTE ---
DATE: 12/28/2018 SUBJECTIVE: A 73-year-old white female patient of Dr. Duque, came in with severe dizziness. The patient is legally blind, with deafness, unable to do activities at home. H and P was reviewed. The daughter was at bedside. The patient is hard of hearing. REVIEW OF SYSTEMS: None reported. PAST MEDICAL HISTORY: Reviewed. PAST SURGICAL HISTORY: Reviewed. MEDICATIONS: Reviewed. ALLERGIES: Penicillin. OBJECTIVE: On exam, temperature is 98 degrees, pulse 92 blood pressure 128/62. HEENT exam within normal limits. Neck is supple. Chest is clear. Heart sounds are regular. Belly is soft, obese, nontender. No obvious deficits. LABORATORY DATA: CBC is normal. SMA 7 is normal. Blood sugars are normal. Magnesium came back 1.8. A1c is excellent, 5.7. Cardiac enzymes were negative. Triglycerides 215, cholesterol 174. Urine is clear. DIAGNOSTIC DATA: Carotid Doppler was negative. MRI of the brain negative. MRA negative. MRI of the neck: Bilateral noncritical disease. Echocardiography report: Normal echocardiogram. ASSESSMENT AND PLAN: 1. Dizziness and vertigo ruled out, most likely inner ear. Meclizine as needed. 2. Type 2 diabetes. Excellent control. We will reconcile home medicines. 3. B12 deficiency, on cyanocobalamin 1000 mcg as directed. 4. Hypertension, on lisinopril and hydrochlorothiazide. 5. Acid reflux disease, on Prilosec. 6. Family is requesting for rehabilitation placement. Continue on physical therapy. They want to go to [facility]. Plant Maintenance Technician consult for rehab placement. Continue present treatment. cc: MD Damon Benitez MD
[2018-12-29] MEDS: HUMULIN R SUBQ SCH ×3 (06:13→16:09)
[2018-12-29] MEDS: PRILOSEC PO SCH (06:13)
[2018-12-29] MEDS: ADVAIR 250/50 DISKUS INH SCH ×2 (08:58→19:49)
[2018-12-29] MEDS: PRINIVIL PO SCH ×2 (09:19→21:08)
[2018-12-29] MEDS: GLUCOPHAGE PO SCH ×2 (09:19→16:26)
[2018-12-29] MEDS: HYDROCHLOROTHIAZIDE PO SCH (09:19)
[2018-12-29] MEDS: ANTIVERT PO SCH ×3 (09:19→21:08)
--- NOTE | 2018-12-29 14:43 | PROGRESS NOTE ---
DATE: 12/29/2018 SUBJECTIVE: The patient is pleasantly confused. Complains of intermittent dizziness. No symptoms. She wants physical therapy. Family was not at bedside. She is alert with followup with verbal commands. PHYSICAL EXAMINATION: Vital Signs: Temp is 97.3, pulse 92, blood pressure 137/59. HEENT: Within normal limits. Neck: Supple. Chest: Clear. Heart: Sounds are regular. Neurologic: No neurological deficits. INVESTIGATIONS: None reported. ASSESSMENT AND PLAN: 1. Dizziness and vertigo, probably inner ear. Meclizine as needed. 2. Type 2 diabetes. I started on metformin twice daily at the request of the family, is well controlled. 3. B12 deficiency on B12 injection. 4. Hypertension, stable. 5. Acid reflux disease on Prilosec. 6. Career Portals Teacher consult for rehab. Continue present treatment. LEVEL OF DOCUMENTATION: 25 minutes. cc: MD Damon Benitez MD
[2018-12-30] MEDS: HUMULIN R SUBQ SCH ×5 (00:12→23:25)
[2018-12-30] MEDS: PRILOSEC PO SCH (06:44)
[2018-12-30] MEDS: ADVAIR 250/50 DISKUS INH SCH ×2 (08:03→19:30)
[2018-12-30] MEDS: GLUCOPHAGE PO SCH ×2 (10:02→17:21)
[2018-12-30] MEDS: ANTIVERT PO SCH ×3 (10:03→23:26)
[2018-12-30] MEDS: PRINIVIL PO SCH ×3 (10:03→23:28)
[2018-12-30] MEDS: HYDROCHLOROTHIAZIDE PO SCH (10:03)
--- NOTE | 2018-12-30 12:31 | PROGRESS NOTE ---
DATE: 12/30/2018 SUBJECTIVE: Ms. Hayden is still using the p.r.n. meclizine. Her vital signs are stable. She cannot move around without falling, and she is very unsteady. We are trying to get the rehab position for her. Probably will get a bed tomorrow. IMPRESSION: Severe labyrinthitis. cc: MD Damon Montana MD
[2018-12-31] MEDS: HUMULIN R SUBQ SCH (06:01)
[2018-12-31] MEDS: PRILOSEC PO SCH (06:01)
--- NOTE | 2018-12-31 07:31 | DISCHARGE SUMMARY ---
ADMISSION DATE: 12/25/2018 DISCHARGE DATE: FINAL DISCHARGE DIAGNOSES: 1. Vertigo most likely denying positional. 2. Headache. 3. Hypertension. 4. Hyperlipidemia. 5. Gastritis and reflux disease. 6. History of glaucoma, visual impairment. 7. Noninsulin dependent diabetes mellitus. 8. Vitamin B12 deficiency. HISTORY: Ms Gilmore is a 73-year-old white female patient admitted with sudden onset of vertigo and unsteady gait, some nausea and dull headache. The patient was evaluated in the ER. Patient was very unsteady. She was treated conservatively. Her symptoms did not improve. The patient also had elevated blood pressure which was treated appropriately. The patient was admitted for further care and workup. HOSPITAL COURSE: Patient was treated symptomatically with meclizine. We did workup including MRA and MRI of the brain. CT scan of the brain. Neurology consult obtained. Her clinical condition stabilized and improved. Clinically, patient is doing better. Last night, the patient claims she had 6 to 7 loose bowel movement. According to the nurses, those were much less. Her blood pressure was low normal, and they are holding her lisinopril. The patient is in agreement to go to rehab as there is nobody at home to take care of the patient. The patient does have unsteady gait. She is high risk for fall. DISCHARGE EXAMINATION: Her vital signs blood pressure 114/75, pulse 92, respiration 18, temperature 97.9 degrees. Neck: Supple. No JVD. Lungs: Bilateral occasional wheezing. CVS: S1 and S2 heard. Abdomen: Soft and globular. Bowel sounds present. Extremities: No cyanosis or clubbing. No acute DVT. DIRECTOR HYDROGEN STORAGE ENGINEERING: Alert and awake, able to move all 4 limbs. Her benign positional vertigo symptoms are improving though patient still has some vertigo. LABORATORY DATA: Lab data revealed last magnesium 1.8. Calcium 9.2 I am going to repeat electrolytes, CBC and magnesium today prior to discharge because of diarrhea. I will also get CBC. Hemoglobin A1c was 5.7. Lipid panel total cholesterol 174, triglyceride 215. HDL was 52. I am going to get stool workup done. The patient does have history of stress-induced diarrhea. Her magnesium was 1.3 which we supplemented. X-ray and carotid Doppler showed no significant plaque identified. Antegrade vertebral flow bilaterally. No significant stenosis present on either internal carotids. The patient had MRA done in the neck which revealed bilateral internal carotid artery stenosis severe on the right and moderate on the left. The patient had MRA of the brain done, which was negative. MRI of the brain showed no acute disease. Tiny nonspecific white matter hyperintensity in the right frontal lobe. Chest x-ray revealed mild cardiomegaly. IMPRESSION AND PLAN: Overall, patient received maximum benefit of hospitalization. After reviewing today's labs, if there is no major surprises, I am planning to discharge patient to rehab. Discharge orders as per separate sheet. Fall precautions. We will monitor patient closely. cc: Damon Duque MD
[2018-12-31 08:00] LABS: HEMATOCRIT 42.7 % (37.0-47.0); HEMOGLOBIN 15.3 g/dL (12.0-16.0); MCV 90.1 FL (81-99); RBC 4.74 XMIL (4.2-5.4); WBC 9.73 X1000 (4.8-10.8)
[2018-12-31 08:01] LABS: BASO# 0.05 X1000 (0.0-0.2); BASO% 0.5 % (0.0-0.8); EOS# 0.32 X1000 (0.0-0.7); EOS% 3.3 % (0.0-10.0); IMM GRAN# 0.06 X1000 (0.0-0.04); IMM GRAN% 0.6 % (0.0-0.5); LYMPH# 3.79 X1000 (1.2-3.4); MCH 32.3 PG (27-31); MCHC 35.8 g/dL (33-37); MONO# 0.78 X1000 (0.11-0.59); MPV 10.1 FL (7.4-10.4); NEUT# 4.73 X1000 (1.4-6.5); NEUT% 48.6 % (42.2-75.2); PLT 287 X1000 (130-400); RDW 13.7 % (11.5-14.5)
[2018-12-31 08:24] LABS: ESTIMATED GFR > 60
[2018-12-31 08:29] LABS: AGAP 14; ALB/GLOB RATIO 1.6; ALBUMIN 4.2 g/dL (3.5-5.0); ALKALINE PHOSPHATASE 51 U/L (32-104); BUN 12 mg/dL (8-22); CALCIUM 8.5 mg/dL (8.8-10.2); CHLORIDE 86 mmol/L (98-107); COSMO 253; CREATININE 0.7 mg/dL (0.5-0.9); GLUCOSE 137 mg/dL (70-104); GOT 22 U/L (10-30); GPT 19 U/L (10-36); MAGNESIUM 1.4 mg/dL (1.5-2.7); POTASSIUM 3.8 mmol/L (3.5-5.1); SODIUM 125 mmol/L (136-145); TCO2 25 mmol/L (25-35); TOTAL BILIRUBIN 0.48 mg/dL (0.20-1.00); TOTAL PROTEIN 6.9 g/dL (6.3-8.3)
[2018-12-31] MEDS: GLUCOPHAGE PO SCH (08:54)
[2018-12-31] MEDS: PRINIVIL PO SCH (08:55)
[2018-12-31] MEDS: ANTIVERT PO SCH (08:55)
[2018-12-31] MEDS ORDERED: HYDROCHLOROTHIAZIDE PO SCH (09:00)
[2018-12-31] MEDS: ADVAIR 250/50 DISKUS INH SCH (11:19)
[2018-12-31 12:10] VITALS: BP 127/47
[2019-01-04] MEDS ORDERED: CYANOCOBALAMIN IM SCH (13:00)
== END 2018-12-31 15:25 | DRG 149 ==
LOC: SUPCPDRO → ED 20:45 → EDIPHOLD 12-25 05:44 → 3N 12-25 12:39
PROVIDERS: ADMIT Internal Medicine; ATTEND Internal Medicine
CPT/HCPCS: 70450; 70544; 70547; 70553; 71020; 71046; 80048; 80053; 80061; 81001; 82550; 82948; 83036; 83721; 83735; 83880; 84484; 85025; 85610; 85730; 93005; 93306; 93880; 94640; 94761; 96374; 96375; 97163; 99285; A9270; A9579; C8929; J0461; J2405; J3475; Q9957; XXXXX

== ENCOUNTER 2019-05-12 13:08 | Inpatient (IN) ==
[2019-05-12] MEDS ORDERED: TYLENOL PO PRN (16:08)
[2019-05-12] MEDS ORDERED: LEVAQUIN 500 MG/D5W 500 MG/100 ML IVPB IV ONE (17:20)
[2019-05-12] MEDS ORDERED: HUMALOG SUBQ ONE (17:24)
[2019-05-12 17:29] LABS: URINE SOURCE CLEAN CATCH
[2019-05-12 17:31] LABS: BILIRUBIN URINE NEGATIVE (NEGATIVE); BLOOD URINE SMALL (NEGATIVE); COLOR YELLOW; GLUCOSE URINE NEGATIVE (NEGATIVE); KETONE URINE 20 mg/dL (NEGATIVE); LEUKOCYTES URINE MODERATE (NEGATIVE); NITRITE URINE NEGATIVE (NEGATIVE); PH URINE 6.5; PROTEIN URINE 100 mg/dL (NEGATIVE); SP GRAVITY URINE 1.023; TURBIDITY URINE CLEAR (CLEAR); UR EPITHELIAL CELLS <10 /HPF (<10); URINE BACTERIA 2+ /HPF; URINE WBC TNTC /HPF (<10); UROBILINOGEN URINE NORMAL (NORMAL)
[2019-05-12] MEDS: FERROUS SULFATE PO SCH (17:37)
[2019-05-12] MEDS: SOLU-MEDROL IV SCH ×2 (17:37→23:46)
[2019-05-12] MEDS: LOVENOX SUBQ SCH (17:37)
[2019-05-12 17:41] LABS: ALLEN TEST NO; BE 2.4 mmoll (-3.0-3.0); BLOOD TYPE ARTERIAL; HCO3-(ACT) 26.8 mmoll (20.0-26.0); METHB 0.8 % (0.0-1.5); MODALITY ROOM AIR; O2(CT) 17.9 mL/dL (15.0-23.0); O2HB 95.5 % (95.0-99.0); PCO2(98.6) 30 mmHg (35-45); PO2(98.6) 77 mmHg (60-100); SAMPLE BLOOD; SAO2 97.5 % (95.0-100.0); THB 13.3 g/dL (11.5-17.4); pH(98.6) 7.52 (7.35-7.45)
[2019-05-12] MEDS: DUONEB (A & A) INH SCH ×2 (18:09→22:19)
[2019-05-12] MEDS ORDERED: ADVAIR 250/50 DISKUS INH SCH (21:00)
[2019-05-12] MEDS ORDERED: PRINIVIL PO SCH (21:00)
[2019-05-12] MEDS: GLUCOPHAGE PO SCH (21:04)
[2019-05-12] MEDS: HUMALOG SUBQ SCH ×2 (21:04→21:12)
[2019-05-12] MEDS ORDERED: DUONEB (A & A) INH SCH (22:00)
[2019-05-12] MEDS: ADVAIR 250/50 DISKUS INH SCH (22:19)
--- NOTE | 2019-05-12 22:52 | HISTORY AND PHYSICAL ---
CHIEF COMPLAINT: Chest congestion, fever. HISTORY OF PRESENT ILLNESS: Ms. Deirdre Hayden is a 73-year-old white female patient, not doing well for 2 days, complaining of chest congestion, cough, some wheezing, increasing shortness of breath, and decreased exercise tolerance. The patient also had urinary frequency and urgency. The patient also had dysuria and odor to her urine. The patient was feeling weak. The patient was complaining of some nausea, but no vomiting. She also had headache. The patient came to the office for evaluation. I evaluated the patient. Her urinalysis in the office did reveal a UTI. I did blood work in the hospital, which did reveal leukocytosis. Chest x-ray revealed possible bronchitis. The patient had underlying COPD. The patient seems to be acutely ill. Depending on the lab findings, x-ray and clinical findings I decided to admit the patient for further care. The patient does have glaucoma and some visual impairment which is chronic, some runny nose, stuffy nose, sinus drainage. Denied neck stiffness. No typical chest pain or palpitation. Does have cough and wheezing. No abdominal pain. The patient did have some nausea. No diarrhea blood or mucus in the stool. Denied any heat or cold intolerance. No significant weight loss or weight gain. No joint swelling or redness. The patient does have arthritic pain in the knee. No leg swelling. No further history available at this time. ALLERGIES: Penicillin. PAST MEDICAL HISTORY: Significant for hyperlipidemia, NIDDM, COPD, hypertension, gastritis, osteoarthritis, glaucoma, urinary incontinence, pernicious anemia. PAST SURGICAL HISTORY: Cholecystectomy, hysterectomy, nephrolithiasis, bilateral cataract surgery. SOCIAL HISTORY: Patient denied alcohol or substance abuse. Lives by herself. Fairly independent in activities of daily living. FAMILY HISTORY: Significant for mother and father with diabetes mellitus, otherwise noncontributory. PHYSICAL EXAMINATION: GENERAL: Elderly white female patient in mild distress. VITAL SIGNS: Her temperature on admission 102.7, heart rate 107, respiratory rate 18, blood pressure 140/45. SKIN: The senile turgor. HEENT: Head atraumatic, normocephalic. [place] conjunctivae. Anicteric sclerae. Extraocular muscle movement normal. Fundus cannot be penetrated. Good oral hygiene. No tonsillopharyngeal congestion or exudate. Ears and nose benign. NECK: Supple. No JVD, thyromegaly or lymphadenopathy. CHEST: Bilateral good air entry present. Bilateral occasional wheezing. Few basal crepitations. CVS: S1 and S2 heard. No gallop or thrill. ABDOMEN: Soft, globular. Bowel sounds present. EXTREMITIES: No cyanosis, clubbing. No acute DVT. PARKING ENFORCER: Alert, awake able to move all 4 limbs. Crepitation both the knee joints. IMPRESSION: 1. Patient admitted with acute bronchitis. Symptoms suggestive of chronic obstructive pulmonary disease exacerbation. 2. Her urinalysis in my office did reveal urinary tract infection. The patient had a fever. 3. The other medical problems includes hypertension, noninsulin-dependent diabetes mellitus, hyperlipidemia, gastritis. PLAN: Admit the patient. Deep vein thrombosis and gastrointestinal prophylaxis. Continue home medicine. Septic workup. Bronchodilator treatment. Overall plan discussed with the patient and she is in agreement. cc: Damon Duque MD
[2019-05-13] MEDS: DUONEB (A & A) INH SCH ×4 (04:57→22:15)
[2019-05-13] MEDS: PRILOSEC PO SCH (06:30)
[2019-05-13] MEDS: HUMALOG SUBQ SCH ×4 (06:30→21:58)
[2019-05-13] MEDS: ADVAIR 250/50 DISKUS INH SCH ×2 (07:55→20:33)
[2019-05-13] MEDS: FERROUS SULFATE PO SCH ×3 (08:33→17:21)
[2019-05-13] MEDS: HYDROCHLOROTHIAZIDE PO SCH (08:33)
[2019-05-13] MEDS: GLUCOPHAGE PO SCH ×2 (08:33→21:58)
[2019-05-13] MEDS: ZETIA PO SCH (08:33)
[2019-05-13] MEDS: POTASSIUM CHLORIDE 10 MEQ in NS 1,000 ML IV SCH ×2 (08:33→21:58)
[2019-05-13] MEDS: PRINIVIL PO SCH (08:34)
--- NOTE | 2019-05-13 09:04 | PROGRESS NOTE ---
DATE: 05/13/2019 SUBJECTIVE: Ms Gilmore is feeling better. Mild cough, no expectoration. Her fever improved. Oral intake is fair. Denied any diarrhea, blood or mucus in the stool. Mild epigastric discomfort though it is improving. The patient admitted with febrile illness. Her urinalysis did reveal UTI. OBJECTIVE: Vital Signs: Noted. Neck: Supple. No JVD. Lungs: Bilateral good air entry present. Cardiovascular: S1 and S2 heard. Abdomen: Soft, globular. Bowel sounds present. Central nervous system: Alert, awake, able to move all 4 limbs. ASSESSMENT AND PLAN: Urinalysis did reveal UTI. The patient is on Levaquin, which will continue. Acute asthmatic bronchitis. We will do small dose of steroid. I will hydrate the patient. Continue the rest of the treatment. Her other problem includes NIDDM, COPD, hypertension. Her blood pressure is staying low normal. I am going to change her lisinopril to once a day. Continue rest of the treatment. In case of more distress, call us back or go to the emergency room. We will decrease her steroid. Ambulate the patient. We will follow culture overall. Overall plan discussed with the patient and she is in agreement. cc: Damon Duque MD
[2019-05-13] MEDS: SOLU-MEDROL IV SCH (11:08)
[2019-05-13] MEDS ORDERED: VANCOMYCIN IV PER PHARMACY MISC SCH (14:00)
[2019-05-13] MEDS ORDERED: VANCOMYCIN 1.3 GM in NS 250 ML IV ONE (17:00)
[2019-05-13] MEDS: LOVENOX SUBQ SCH (17:21)
[2019-05-13] MEDS ORDERED: LEVAQUIN 500 MG/D5W 500 MG/100 ML IVPB IV SCH (17:30)
[2019-05-14] MEDS: SOLU-MEDROL IV SCH (00:31)
[2019-05-14] MEDS: DUONEB (A & A) INH SCH ×2 (04:00→10:00)
[2019-05-14 05:23] LABS: BASO# 0.01 X1000 (0.0-0.2); BASO% 0.1 % (0.0-0.8); HEMATOCRIT 35.5 % (37.0-47.0); HEMOGLOBIN 12.2 g/dL (12.0-16.0); IMM GRAN# 0.06 X1000 (0.0-0.04); IMM GRAN% 0.5 % (0.0-0.5); LYMPH# 1.77 X1000 (1.2-3.4); LYMPH% 14.3 % (20.5-51.1); MCH 31.4 PG (27-31); MCHC 34.4 g/dL (33-37); MCV 91.5 FL (81-99); MONO# 0.41 X1000 (0.11-0.59); MONO% 3.3 % (1.7-9.3); MPV 10.4 FL (7.4-10.4); NEUT# 10.13 X1000 (1.4-6.5); NEUT% 81.8 % (42.2-75.2); PLT 203 X1000 (130-400); RBC 3.88 XMIL (4.2-5.4); RDW 13.4 % (11.5-14.5); WBC 12.38 X1000 (4.8-10.8)
[2019-05-14 05:51] LABS: AGAP 14; ALB/GLOB RATIO 1.3; ALBUMIN 3.6 g/dL (3.5-5.0); ALKALINE PHOSPHATASE 44 U/L (32-104); BUN 19 mg/dL (8-22); CALCIUM 7.9 mg/dL (8.8-10.2); CHLORIDE 97 mmol/L (98-107); COSMO 273; CREATININE 0.7 mg/dL (0.5-0.9); ESTIMATED GFR > 60; GLUCOSE 184 mg/dL (70-104); GOT 20 U/L (10-30); GPT 14 U/L (10-36); MAGNESIUM 1.4 mg/dL (1.5-2.7); POTASSIUM 3.3 mmol/L (3.5-5.1); SODIUM 133 mmol/L (136-145); TCO2 22 mmol/L (25-35); TOTAL BILIRUBIN 0.25 mg/dL (0.20-1.00); TOTAL PROTEIN 6.3 g/dL (6.3-8.3)
[2019-05-14] MEDS: HUMALOG SUBQ SCH ×2 (06:06→12:30)
[2019-05-14] MEDS: PRILOSEC PO SCH (06:09)
[2019-05-14] MEDS ORDERED: MAGNESIUM SULFATE 2 GM/S.W.I. 2 GM/50 ML IVPB IV ONE (06:33)
[2019-05-14] MEDS ORDERED: KLOR-CON PO ONE (06:34)
--- NOTE | 2019-05-14 07:27 | PROGRESS NOTE ---
DATE: 05/14/2019 SUBJECTIVE: Ms. Hayden is doing better. The patient denied any high-grade fever or chills. The patient had some cough and chest congestion. No typical chest pain. Shortness of breath is much better. Denied any nausea or vomiting. Oral intake is improving. No dysuria. OBJECTIVE: Her vital signs noted. Neck is supple. No JVD. Lungs: Bilateral good air entry present. Occasional wheezing. CVS: S1 and S2 heard. Abdomen: Soft, globular. Bowel sounds present. Extremities: No cyanosis, clubbing. No acute DVT. COUNTY HISTORIAN: Alert, awake. Able to move all 4 limbs. CONSIDERATION: The patient's problems include: 1. Urinary tract infection. Urine was growing gram negative rods. The patient is on Levaquin. 2. Possible sepsis. Blood culture grew coagulase-negative staphylococcus. Only one blood culture set was positive. I think it is more of contamination. I started patient on vancomycin, which I am going to stop it today. Ambulate the patient in the room and hallway. Change prednisone to oral prednisone. 3. Hypomagnesemia and hypokalemia. We will supplement. 4. History suggestive of chronic obstructive pulmonary disease and insulin-dependent diabetes mellitus. Continue the rest of the treatment and close observation. cc: Damon Duque MD
[2019-05-14] MEDS: ADVAIR 250/50 DISKUS INH SCH (08:22)
[2019-05-14] MEDS ORDERED: PREDNISONE PO SCH (09:00)
[2019-05-14 09:07] VITALS: BP 112/57
[2019-05-14] MEDS: FERROUS SULFATE PO SCH (10:53)
[2019-05-14] MEDS: HYDROCHLOROTHIAZIDE PO SCH (10:53)
[2019-05-14] MEDS: GLUCOPHAGE PO SCH (10:53)
[2019-05-14] MEDS: ZETIA PO SCH (10:54)
[2019-05-14] MEDS: PRINIVIL PO SCH (10:54)
[2019-05-15] MEDS ORDERED: VANCOMYCIN 1 GM/NS 1 GM/250 ML IVPB IV SCH (05:00)
--- NOTE | 2019-06-05 08:17 | DISCHARGE SUMMARY ---
ADMISSION DATE: 05/12/2019 DISCHARGE DATE: 05/14/2019 FINAL DISCHARGE DIAGNOSES: 1. Urinary tract infection. 2. Acute bronchitis. 3. Diabetes mellitus. 4. Hypomagnesemia and hypocalcemia. 5. History of glaucoma. 6. Chronic obstructive pulmonary disease exacerbation. 7. Hyperlipidemia. HISTORY: Ms. Gilmore is a 73-year-old white female patient came to the office because she was not doing well for 2 days. She was complaining of chest congestion, cough, wheezing, increasing shortness of breath, and decreased exercise tolerance. The patient also had dysuria, urinary frequency, urgency, fever and chills. I did a urine dipstick in the office which did reveal a UTI. The patient was weak. I decided to admit the patient for further care. HOSPITAL COURSE: Patient was treated with IV hydration, IV antibiotics and steroids. Her clinical condition gradually stabilized and improved. Her shortness of breath improved. Urinalysis did reveal UTI. Urine grew E. Coli more than 100,000 colony count which was sensitive to multiple antibiotics. The patient's clinical condition gradually improved. Her oral intake and nausea also improved. The patient was able to ambulate well, and I decided to discharge patient home on 05/14 in stable condition. Overall discharge plan was discussed with the patient. Patient understood and agreed. Plenty of liquids at home. Follow up with me in a week. Monitor Accu-Chek at home. In case of more distress, call us back or go to the emergency room. cc: Damon Duque MD
[2019-06-06] MEDS ORDERED: CYANOCOBALAMIN IM SCH (09:00)
== END 2019-05-14 13:51 | disposition home health service (06) | DRG 202 ==
LOC: DIRADM 13:08 → 1N 14:50
PROVIDERS: ADMIT Internal Medicine; ATTEND Internal Medicine